=== PATIENT | female | born 1970 | race Caucasian/White ===

== ENCOUNTER 2016-04-28 16:00 | Emergency (ER) | payer MEDICARE ==
[~2016-04-28 16:00] MED LIST: ADVAIR 250-501 EACH INH; ALBUTEROL HFA6.7 GM INH; CELEXA10 MG PO; CELEXA20 MG PO; COMBIVENT RESPIM4 GM IH; COREG25 MG PO; CYANOCOBAL1000 MCG/M IM; FLUTICASONE PRO16 GM; KLONOPIN0.5 MG PO; LEVAQUIN500 MG PO; LEVAQUIN750 MG PO; LISINOPRIL40 MG PO; NEURONTIN600 MG PO; NICOTINE TRANSD21 MG TD; NORVASC10 MG PO; NORVASC5 MG PO; NYSTATIN5 ML MT; OMEPRAZOLE40 MG PO; PERCOCET 10-321 EACH PO; PERCOCET 10/3251 TAB PO; PREDNISONE10 MG PO; PREDNISONE20 MG PO; PRILOSEC20 MG PO; PRILOSEC40 MG PO; PROAIR HFA8.5 GM IH; PROAIR HFA8.5 GM INH; SINGULAIR10 MG PO; SPIRIVA18 MCG INH; TAMIFLU75 MG PO; TYLENOL325 MG PO
== END 2016-04-28 18:07 | disposition home or self-care (01) ==
LOC: ER 16:00
DX: R07.9 Chest pain, unspecified (principal); F11.23 Opioid dependence with withdrawal; R20.0 Anesthesia of skin; R11.0 Nausea; F41.9 Anxiety disorder, unspecified; F32.9 Major depressive disorder, single episode, unspecified; K21.9 Gastro-esophageal reflux disease without esophagitis; I10 Essential (primary) hypertension; F17.210 Nicotine dependence, cigarettes, uncomplicated; Z90.710 Acquired absence of both cervix and uterus
CPT/HCPCS: 36415

== ENCOUNTER 2016-07-06 16:31 | Emergency (ER) | payer MEDICARE | END 2016-07-06 19:05 | disposition home or self-care (01) | LOC: ER 16:31 | DX: R09.1 Pleurisy (principal); R20.2 Paresthesia of skin; K21.9 Gastro-esophageal reflux disease without esophagitis; I10 Essential (primary) hypertension; F41.9 Anxiety disorder, unspecified; F32.9 Major depressive disorder, single episode, unspecified; J45.909 Unspecified asthma, uncomplicated; F17.210 Nicotine dependence, cigarettes, uncomplicated; Z90.710 Acquired absence of both cervix and uterus | CPT/HCPCS: 36415; 96374; 96375; J1885; J2060 ==